=== PATIENT | female | born 1975 | race African-American/Black ===

== ENCOUNTER 2019-12-24 05:06 | Day surgery (SDC) | payer OTHER ==
[2019-12-20 18:37] VITALS: BMI 31.5
[~2019-12-24 05:06] MED LIST: ceFAZolin SODIUM 1 GM VIAL IVPB ONE
[2019-12-24] MEDS ORDERED: MIDAZOLAM HCL 2 MG/2 ML SINGLE DOSE VIAL ONE (09:58)
[2019-12-24] MEDS ORDERED: PROPOFOL 20 ML ONE (09:58)
--- NOTE | 2019-12-24 11:07 | HP ---
History & Physical Update - History History: No Change (Menorrhagia, fibroid uterus) - Physical Physical: No Change - Assessment Assessment: No Change - Plan Plan: No Change (Hysteroscopic myomectomy, D&C.)
[2019-12-24] MEDS ORDERED: ceFAZolin SODIUM 1 GM VIAL IVPB ONE (11:12)
[2019-12-24] MEDS ORDERED: DEXAMETHASONE SOD PHOSPHATE 4 MG/1 ML VIAL ONE (11:23)
[2019-12-24] MEDS ORDERED: KETOROLAC TROMETHAMINE 30 MG/1 ML VIAL ONE (11:23)
--- NOTE | 2019-12-24 11:56 | OP ---
Operative Note - Note: Operative Date: 12/24/19 Pre-Operative Diagnosis: Menorrhagia, fibroid uterus Operation: Hysteroscopy, polypectomy, D&C Findings: Enlarged uterus, uterine cavity sounded 12 cm, posterior uterine polyp. Post-Operative Diagnosis: Same as Pre-op Surgeon: Patricio Abreu Anesthesiologist/METAL SORTER: Sagar Caba Anesthesia: General Specimens Removed: Endomterial polyp, endometrial curettings. Estimated Blood Loss (mls): 4 Drains, Volume Out (mls): 0 Blood Volume Replaced (mls): 0 Fluid Volume Replaced (mls): 1,000 Operative Report Dictated: Yes
--- NOTE | 2019-12-24 12:25 | OP ---
DATE OF OPERATION: 12/24/2019 PREOPERATIVE DIAGNOSIS: Menorrhagia, fibroid uterus. POSTOPERATIVE DIAGNOSIS: Menorrhagia, fibroid uterus and endometrial polyp. SURGEON: Patricio Abreu MD CLOTH PICKER: None. ANESTHESIOLOGIST: Sagar Caba MD ANESTHESIA: General. COMPLICATIONS: None. ESTIMATED BLOOD LOSS: 4 mL IV FLUIDS: 1000 mL PATHOLOGY: Endometrial polyp, endometrial curettings. FINDINGS: Examination under anesthesia revealed a slightly enlarged anteverted uterus with no pelvic or adnexal masses. Hysteroscopy revealed a normal endometrial cavity that was sounded to 12 cm. No submucosal myomas were noted. There was a posterior uterine polyp approximately 2 cm in size. The polyp was excised with good hemostasis completely. A normal uterine cavity was visualized once the polyp was removed. SURGICAL PROCEDURE DESCRIPTION: Patient was met preoperatively. The risks, benefits and alternatives of surgery were discussed in details. All questions were answered. The consent form was reviewed and discussed. The patient verbalized her understanding and requested to proceed with the surgery. The patient was then brought to the OR with the IV running. She was placed on the surgical table in the supine position. The general anesthesia was achieved without difficulty. The patient was placed in a dorsal lithotomy position using adjustable Luis stirrups. She was examined under anesthesia with the findings as described above. The patient was then prepped and draped in the usual sterile fashion. A timeout procedure was conducted as per standard protocol. The surgeon then proceeded with the operation. A weighted speculum was introduced inside the vagina with good visualization of the cervix. The cervix was grasped with a single-tooth tenaculum. The endocervical canal was dilated to accommodate a size 23 Reilly dilator. A resectoscope was introduced inside the uterine cavity. The uterine cavity appeared to be enlarged. However, it was normal and no submucosal myomas were observed. There was a 2-cm posterior endometrial polyp. The polyp was excised completely. Good hemostasis was noted. The instruments were then removed from the patient. A sharp uterine curettage was performed. The tissue was submitted to Pathology for evaluation. Once again, good hemostasis was noted. The instruments were removed from the patient. Sponge, lap, instrument counts were correct. The patient was returned to supine position and transferred to recovery room in stable condition. Kian ANDERSEN/[id number]
[2019-12-24] MEDS ORDERED: ONDANSETRON 4 MG/2 ML VIAL IVPUSH PRN (13:00)
[2019-12-24] MEDS ORDERED: oxyCODONE HCL 5 MG TABLET PO PRN ×2 (13:00)
[2019-12-24] MEDS ORDERED: LACTATED RINGERS SOLUTION 1,000 ML IV SCH (13:00)
[2019-12-24 15:37] VITALS: BP 127/74; PULSE 84; TEMP 98
--- NOTE | 2019-12-25 16:31 | PATH ---
Surgical Pathology Report Patient Name: ERON SIN [facility]. Rec. #: [id number] /Age/Gender: 1975 (Age: 44) / F Account: [id number] Location: [facility] SUR[facility] Taken: 12/24/2019 Received: 12/24/2019 Reported: 12/25/2019 Physicians: Patricio Abreu M.D. Specimen(s) Received A: ENDOMETRIAL POLYP B: ENDOMETRIAL CURETTINGS Clinical History Excessive and frequent menstruation with irregular Final Diagnosis A. ENDOMETRIAL POLYP, POLYPECTOMY: FRAGMENTS OF ENDOMETRIAL POLYP. B. ENDOMETRIAL CURETTINGS, DILATION AND CURETTAGE: FRAGMENTS OF ENDOMETRIAL POLYP, SECRETORY ENDOMETRIUM, BENIGN ENDOCERVICAL TISSUE WITH SQUAMOUS METAPLASIA, AND BENIGN CERVICAL SQUAMOUS MUCOSA. Electronically Signed Breanna Judd M.D. Gross Description A. Received in formalin labeled "endometrial polyp," is a 2.0 x 1.8 x 0.3 cm aggregate of stewart-pink soft tissue fragments. The formalin is filtered and the specimen is entirely submitted in one cassette. B. Received in formalin labeled "endometrial curettings," is a 3.0 x 3.0 x 0.3 cm aggregate of stewart red soft tissue fragments admixed with blood-tinged mucous. The formalin is filtered and the specimen is entirely submitted in 2 cassettes. 12/24/2019 [facility]12/24/2019
== END 2019-12-24 14:00 | disposition home or self-care (01) ==
LOC: JASU-SURG 05:06
PROVIDERS: ATTEND Obstetrics & Gynecology
PROC: 0UDB7ZX Extraction of Endometrium, Via Natural or Artificial Opening, Diagnostic (ICD-10-PCS; principal; 2019-12-24 11:00)
PROC: 0UJD8ZZ Inspection of Uterus and Cervix, Via Natural or Artificial Opening Endoscopic (ICD-10-PCS; 2019-12-24 11:00)
DX: N92.0 Excessive and frequent menstruation with regular cycle (principal); N84.0 Polyp of corpus uteri
CPT/HCPCS: 36415; 84703; 86850; 86900; 86901; 88305-TC; 94760

== ENCOUNTER 2021-06-07 10:34 | Emergency (ER) | payer OTHER ==
[2021-06-07 11:05] VITALS: BP 159/93; PULSE 94; TEMP 98.7; BMI 33.0
[2021-06-07] MEDS ORDERED: ACETAMINOPHEN 325 MG TABLET (FP) PO ONE (11:13)
[2021-06-07] MEDS ORDERED: LIDOCAINE 5% TOPICAL PATCH TP ONE (11:25)
[2021-06-07] MEDS ORDERED: ACETAMINOPHEN 325 MG TABLET (FP) ONE (11:37)
[2021-06-07] MEDS ORDERED: LIDOCAINE 5% TOPICAL PATCH ONE (11:37)
[2021-06-07] MEDS ORDERED: LIDOCAINE PATCH REMOVAL MC SCH (22:00)
== END 2021-06-07 12:50 | disposition home or self-care (01) ==
LOC: JER 10:34
DX: M54.50 Low back pain, unspecified (principal); W00.9XXA Unspecified fall due to ice and snow, initial encounter
CPT/HCPCS: 99283-25

== ENCOUNTER 2023-01-16 15:36 | Emergency (ER) | payer OTHER ==
[2023-01-16 15:44] VITALS: BP 117/79; PULSE 82; RESP 18; TEMP 97.8; BMI 30.2
[2023-01-16] MEDS ORDERED: SODIUM CHLORIDE 0.9% 500 ML INFUS.BAG IV ONE (16:22)
[2023-01-16] MEDS ORDERED: KETOROLAC TROMETHAMINE 15 MG/ML VIAL IVPUSH ONE (16:23)
[2023-01-16] MEDS ORDERED: ACETAMINOPHEN 500 MG TABLET (FP) PO ONE (16:23)
[2023-01-16] MEDS ORDERED: METOCLOPRAMIDE HCL INJECTION 10 MG/2 ML VIAL IVPUSH ONE (16:23)
[2023-01-16] MEDS ORDERED: METOCLOPRAMIDE HCL INJECTION 10 MG/2 ML VIAL ONE (16:32)
[2023-01-16] MEDS ORDERED: ACETAMINOPHEN 500 MG TABLET (FP) ONE (16:32)
[2023-01-16] MEDS ORDERED: KETOROLAC TROMETHAMINE 15 MG/ML VIAL ONE (16:32)
== END 2023-01-16 18:52 | disposition home or self-care (01) ==
LOC: JERFT 15:36
PROC: 3E033NZ Introduction of Analgesics, Hypnotics, Sedatives into Peripheral Vein, Percutaneous Approach (ICD-10-PCS; principal; 2023-01-16)
PROC: 3E033GC Introduction of Other Therapeutic Substance into Peripheral Vein, Percutaneous Approach (ICD-10-PCS; 2023-01-16)
DX: R51.9 Headache, unspecified (principal); M54.2 Cervicalgia
CPT/HCPCS: 99284-25

== ENCOUNTER 2023-07-24 11:02 | Emergency (ER) | payer OTHER ==
[2023-07-24 11:10] VITALS: BP 115/73; PULSE 87; RESP 18; TEMP 97.5; BMI 30.2
[2023-07-24] MEDS: morphine CARPU-JECT 2 MG/1 ML DISP.SYRIN IVPUSH ONE (12:03)
[2023-07-24 12:07] LABS: BASO % 0.9 % (0-2.0); EOS % 1.7 % (0-4.5); HEMATOCRIT 44.3 % (32.4-45.2); HEMOGLOBIN 14.9 GM/dL (10.7-15.3); LYMPH % 29.5 % (8-40); MCH 28.9 pg (25.7-33.7); MCHC 33.6 g/dl (32.0-36.0); MEAN CELL VOLUME 86.1 fl (80-96); MEAN PLT VOLUME 7.6 fl (7.5-11.1); MONO % 9.7 % (3.8-10.2); NEUT % 58.2 % (42.8-82.8); PLATELET COUNT 339 10^3/uL (134-434); RBC 5.15 M/mm3 (3.60-5.2); RDW 14.4 % (11.6-15.6); WHITE BLOOD COUNT 4.4 K/mm3 (4.0-10.0)
[2023-07-24 12:13] LABS: INR 1.1 (0.83-1.09); PROTHROMBIN TIME (PATIENT) 12.7 SEC (9.7-13.0)
[2023-07-24 12:17] LABS: POTASSIUM 4.6 mmol/L (3.5-5.1)
[2023-07-24 12:19] LABS: CALCIUM 9.4 mg/dL (8.5-10.1)
[2023-07-24 12:20] LABS: MAGNESIUM 2.2 mg/dL (1.8-2.4)
[2023-07-24 12:23] LABS: CREATININE 0.6 mg/dL (0.55-1.3)
[2023-07-24 12:24] LABS: BILIRUBIN,TOTAL 0.7 mg/dL (0.2-1)
[2023-07-24 12:25] LABS: TOT PROT 7.7 g/dl (6.4-8.2)
[2023-07-24 14:08] LABS: HCG,QUALITATIVE URINE Negative
[2023-07-24 14:16] LABS: URINE APPEARANCE CLEAR; URINE BILIRUBIN NEGATIVE (NEGATIVE); URINE COLOR YELLOW; URINE GLUCOSE (UA) NEGATIVE (NEGATIVE); URINE KETONE NEGATIVE (NEGATIVE); URINE NITRITE NEGATIVE (NEGATIVE); URINE PROTEIN NEGATIVE (NEGATIVE); URINE UROBILINOGEN 0.2 mg/dL (0.2-1.0)
[2023-07-24 14:17] LABS: URINE LEUK ESTERASE NEGATIVE (NEGATIVE)
== END 2023-07-24 15:30 | disposition home or self-care (01) ==
LOC: JER 11:02
PROC: 3E030NZ Introduction of Analgesics, Hypnotics, Sedatives into Peripheral Vein, Open Approach (ICD-10-PCS; principal; 2023-07-24)
DX: R10.817 Generalized abdominal tenderness (principal)
CPT/HCPCS: 36415; 74177-TC; 80053; 81003; 83690; 83735; 84703; 85025; 85610; 86850; 86900; 86901; 87086; 96374; 99285-25; Q9967